=== PATIENT | male | born 1930 | race Caucasian/White ===

== ENCOUNTER 2017-04-26 17:38 | Inpatient (IN) | payer OTHER ==
[~2017-04-26] VITALS: Ht 175.3 cm; Wt 78.2 kg
[~2017-04-26 17:38] MED LIST: AMOX1TAB64 PO; Hydrocodone Bit/Acetaminophen PO; METO50TA82 PO; POLY17PO5 PO; SIMV40TA3 PO; SULF1TAB24 PO; WARF5TAB PO
[2017-04-26] MEDS ORDERED: APIX2.5T PO (18:27)
[2017-04-26] MEDS ORDERED: METO25TA35 PO (18:28)
[2017-04-26] MEDS ORDERED: OMNIPAQUE 350 MG/ML, 100ML BOTTLE ONE (18:28)
[2017-04-26] MEDS ORDERED: DOCUSATE 100 MG CAPSULE PO PRN (21:00)
[2017-04-26] MEDS ORDERED: HEPARIN wt. based STROKE protocol MC PRN (21:00)
[2017-04-26] MEDS ORDERED: HYDROcodone/APAP 5/325 TABLET PO PRN (21:00)
[2017-04-26] MEDS ORDERED: ONDANSETRON 2MG/ML, 2ML IVPush PRN (21:00)
[2017-04-26] MEDS ORDERED: LABETALOL 5MG/ML 40ML VIAL IVPush PRN (21:00)
[2017-04-26] MEDS ORDERED: POLYETHYLENE GLYCOL 17 GM PACKET PO PRN (21:00)
[2017-04-26] MEDS ORDERED: ACETAMINOPHEN 325 MG TABLET PO PRN (21:00)
[2017-04-26] MEDS ORDERED: morphine SULFATE 10 MG/ML, 1ML IVPush PRN (21:00)
[2017-04-26] MEDS ORDERED: BISACODYL 10 MG SUPP PR PRN (21:00)
[2017-04-26] MEDS: SODIUM CHLORIDE FLUSH 10ML SYR IVF SCH (22:02)
[2017-04-26 22:04] VITALS: BP 168/83
[2017-04-26] MEDS ORDERED: HEPARIN 25,000 UNITS/500ML PMX 500 ML IV PRN (22:30)
[2017-04-26] MEDS: HEPARIN 25,000 UNITS/500ML PMX 500 ML IV PRN (23:55)
[2017-04-27] VITALS (7 sets, daily range): BP systolic 145–177; BP diastolic 58–92
[2017-04-27 06:35] LABS: BLOOD UREA NITROGEN 18 mg/dL (7-18)
[2017-04-27] MEDS: SODIUM CHLORIDE FLUSH 10ML SYR IVF SCH ×2 (15:32→21:41)
[2017-04-27] MEDS: METOPROLOL TARTRATE 25 MG TABLET PO SCH ×2 (15:32→21:42)
[2017-04-27] MEDS: SIMVASTATIN 40 MG TABLET PO SCH (22:00)
[2017-04-28 03:00] VITALS: BP 157/73
[2017-04-28] MEDS: HEPARIN 25,000 UNITS/500ML PMX 500 ML IV PRN (03:42)
[2017-04-28 04:40] LABS: BLOOD UREA NITROGEN 13 mg/dL (7-18)
[2017-04-28 07:10] VITALS: BP 150/76
[2017-04-28] MEDS: SODIUM CHLORIDE FLUSH 10ML SYR IVF SCH ×2 (08:22→22:54)
[2017-04-28] MEDS: METOPROLOL TARTRATE 25 MG TABLET PO SCH ×2 (08:22→22:53)
[2017-04-28 14:39] VITALS: BP 115/63
[2017-04-28 20:00] VITALS: BP 164/82
[2017-04-28 22:46] VITALS: BP 155/74
[2017-04-28] MEDS: APIXABAN 2.5 MG TABLET PO SCH (22:53)
[2017-04-28] MEDS: SIMVASTATIN 40 MG TABLET PO SCH (22:53)
[2017-04-29 02:00] VITALS: BP 168/59
[2017-04-29 08:23] VITALS: BP 121/61
[2017-04-29] MEDS: APIXABAN 2.5 MG TABLET PO SCH ×2 (08:24→22:22)
[2017-04-29] MEDS: SODIUM CHLORIDE FLUSH 10ML SYR IVF SCH ×2 (08:24→22:22)
[2017-04-29] MEDS: METOPROLOL TARTRATE 25 MG TABLET PO SCH ×2 (08:25→22:22)
[2017-04-29 13:29] VITALS: BP 115/72
[2017-04-29 19:03] VITALS: BP 156/76
[2017-04-29] MEDS: ATORVASTATIN 80 MG TABLET PO SCH (22:22)
[2017-04-29 23:03] VITALS: BP 145/78
[2017-04-30] VITALS: BP 136/81
[2017-04-30 03:07] VITALS: BP 150/76
[2017-04-30] MEDS ORDERED: ZIPRASIDONE 20 MG INJ IM ONE (04:30)
[2017-04-30 06:50] VITALS: BP 160/77
[2017-04-30 07:04] VITALS: BP 160/77
[2017-04-30] MEDS ORDERED: RISPERIDONE 0.5 MG TABLET PO SCH (09:00)
[2017-04-30] MEDS: APIXABAN 2.5 MG TABLET PO SCH ×2 (10:02→21:32)
[2017-04-30] MEDS: METOPROLOL TARTRATE 25 MG TABLET PO SCH ×2 (10:02→21:32)
[2017-04-30] MEDS: SODIUM CHLORIDE FLUSH 10ML SYR IVF SCH ×2 (10:02→21:00)
[2017-04-30 12:36] VITALS: BP 111/61
[2017-04-30] MEDS: RISPERIDONE 1 MG/ML ORAL SOLN PO SCH ×2 (13:31→21:33)
[2017-04-30 18:48] VITALS: BP 144/68
[2017-04-30] MEDS ORDERED: POLYETHYLENE GLYCOL 17 GM PACKET PO PRN (19:30)
[2017-04-30] MEDS ORDERED: BISACODYL 10 MG SUPP PR PRN (19:30)
[2017-04-30] MEDS ORDERED: ACETAMINOPHEN 325 MG TABLET PO PRN (19:30)
[2017-04-30] MEDS ORDERED: DOCUSATE 100 MG CAPSULE PO PRN (19:30)
[2017-04-30] MEDS: ATORVASTATIN 80 MG TABLET PO SCH (21:32)
[2017-05-01 00:27] VITALS: BP 129/76
[2017-05-01 02:51] VITALS: BP 121/75
[2017-05-01 07:54] VITALS: BP 168/89
[2017-05-01] MEDS: METOPROLOL TARTRATE 25 MG TABLET PO SCH ×2 (08:54→20:53)
[2017-05-01] MEDS: RISPERIDONE 1 MG/ML ORAL SOLN PO SCH ×2 (08:55→20:53)
[2017-05-01] MEDS: APIXABAN 2.5 MG TABLET PO SCH ×2 (08:55→20:52)
[2017-05-01] MEDS: SODIUM CHLORIDE FLUSH 10ML SYR IVF SCH ×2 (08:55→20:56)
[2017-05-01 12:13] VITALS: BP 137/76
[2017-05-01 19:00] VITALS: BP 149/80
[2017-05-01] MEDS: ATORVASTATIN 80 MG TABLET PO SCH (20:52)
[2017-05-01] MEDS ORDERED: DIPHENHYDRAMINE 50 MG/ML, 1ML IVPush ONE (21:00)
[2017-05-02 02:00] VITALS: BP 125/74
[2017-05-02 05:43] LABS: BLOOD UREA NITROGEN 19 mg/dL (7-18)
[2017-05-02 05:46] LABS: ASPARTATE AMINO TRANSFERASE 27 U/L (15-37)
[2017-05-02] MEDS ORDERED: METO25TA35 PO (06:19)
[2017-05-02] MEDS ORDERED: APIX2.5T PO (06:19)
[2017-05-02] MEDS ORDERED: APIX5TAB PO (06:19)
[2017-05-02] MEDS ORDERED: RISP1SOL5 PO (06:41)
[2017-05-02] MEDS ORDERED: PNEUMOCOCCAL 23 VACCINE IM-VACC ONE (08:00)
[2017-05-02 08:30] VITALS: BP 123/62
[2017-05-02] MEDS ORDERED: APIXABAN 5 MG TABLET PO SCH (09:00)
[2017-05-02] MEDS: RISPERIDONE 1 MG/ML ORAL SOLN PO SCH (09:41)
[2017-05-02] MEDS: SODIUM CHLORIDE FLUSH 10ML SYR IVF SCH (09:41)
[2017-05-02] MEDS: METOPROLOL TARTRATE 25 MG TABLET PO SCH (09:41)
[2017-05-02] MEDS ORDERED: ATOR80TA75 PO (11:58)
[2017-05-02] MEDS ORDERED: DIGO125T PO (11:59)
[2017-05-10] MEDS ORDERED: ATOR40TA78 PO (15:25)
[2017-05-10] MEDS ORDERED: DIVA250T4 PO (15:26)
[2017-05-10] MEDS ORDERED: QUET25TA5 PO (15:27)
[2017-05-10] MEDS ORDERED: ALPR-475 PO (15:28)
[2017-05-10] MEDS ORDERED: TRAM50TA2 PO (15:29)
== END 2017-05-02 13:32 | DRG 65 ==
LOC: ED 17:39 → EDIP 20:59 → 4WST 21:56 → 4EST 04-27 16:36
PROVIDERS: ADMIT Internal Medicine; ATTEND Internal Medicine
DX: I63.9 Cerebral infarction, unspecified (principal); D68.69 Other thrombophilia; G81.94 Hemiplegia, unspecified affecting left nondominant side; R17 Unspecified jaundice; I48.2 Chronic atrial fibrillation; R29.810 Facial weakness; R73.9 Hyperglycemia, unspecified; E78.5 Hyperlipidemia, unspecified; I11.9 Hypertensive heart disease without heart failure; I25.10 Atherosclerotic heart disease of native coronary artery without angina pectoris; Z79.01 Long term (current) use of anticoagulants; Z79.899 Other long term (current) drug therapy; Z85.46 Personal history of malignant neoplasm of prostate; Z87.891 Personal history of nicotine dependence; Z91.14 Patient's other noncompliance with medication regimen; Z95.0 Presence of cardiac pacemaker
CPT/HCPCS: 36415; 70450; 70496; 70498; 80047; 80048; 80053; 80061; 82040; 82962; 83036; 85025; 85520; 85610; 85730; 90732; 93005; 93306; 93880; 99291; J1644; J3486; Q9967; 92523-GN; J1200

== ENCOUNTER → 2017-10-05 | Outpatient (CLI) | payer OTHER ==
[~2017-10-05] MED LIST changes: +ALEN70TA5 PO; +ALPR-475 PO; +APIX2.5T PO; +APIX5TAB PO; +ASPI-496 PO; +ATOR-2 PO; +ATOR40TA78 PO; +DIGO125T PO; +DIVA250T4 PO; +METO25TA35 PO; +METO25TA91 PO; +QUET25TA5 PO; +RISP1SOL5 PO; +TRAM50TA2 PO
[2017-10-05 11:50] LABS: HEMATOCRIT 43.5 % (39.2-51.8); HEMOGLOBIN 14.6 g/dL (13.7-18.0); WHITE BLOOD COUNT 6.3 x10^3/uL (3.4-10)
[2017-10-05 12:01] LABS: ASPARTATE AMINO TRANSFERASE 12 U/L (15-37); BLOOD UREA NITROGEN 11 mg/dL (7-18)
== END | disposition home or self-care (01) ==
LOC: STAR 10:40
PROVIDERS: ATTEND Surgery
DX: Z01.818 Encounter for other preprocedural examination (principal); R94.31 Abnormal electrocardiogram [ECG] [EKG]; I63.231 Cerebral infarction due to unspecified occlusion or stenosis of right carotid arteries
CPT/HCPCS: 36415; 80053; 85025; 93005